=== PATIENT | male | born 1965 | race African-American/Black ===

== ENCOUNTER 2017-10-06 07:56 | Inpatient (IN) ==
[2017-10-06] MEDS ORDERED: ONDANSETRON 4 MG/2 ML VIAL IV STA (08:13)
[2017-10-06] MEDS ORDERED: PANTOPRAZOLE 40 MG VIAL IV STA (08:13)
[2017-10-06 08:39] LABS: Basophils % 0.3 % (0.0-0.8); Eosinophils # 0.1 10*3/uL (0.0-0.87); Eosinophils % 1.6 % (0.00-10.9); Hematocrit 33.4 VOL% (42.0-52.0); Hemoglobin 10.6 GM/DL (14.0-18.0); Immature Granulocytes % 0.5 %; Immature Granulocytes Absolute 0.03 #; Lymphocytes # 1.1 10*3/uL (1.4-4.0); Lymphocytes % 16.9 % (21.2-54.2); Mean Corpuscular HGB Conc 31.7 GM/DL (32-36); Mean Corpuscular Hemoglobin 28 PG (27-34); Mean Corpuscular Volume 89.1 FL (87-102); Mean Platelet Volume 10.6 FL (9.6-12.0); Monocytes # 0.5 10*3/uL (0.11-0.8); Monocytes % 8.5 % (1.7-12.7); Neutrophils # 4.5 10*3/uL (1.4-7.4); Neutrophils % 72.2 % (38.7-73.9); Platelet Count 322 T/CUMM (130-400); Red Blood Count 3.75 MC/CUMM (3.8-5.5); Red Cell Distribution Width 13.6 % (9.3-17.3); White Blood Count 6.2 T/CUMM (4-12)
[2017-10-06 08:47] LABS: PT Patient Result 10.8 SECS; Partial Thromboplastin Time 25.9 SECS (0-40)
[2017-10-06 09:03] LABS: Albumin 3.8 G/DL (3.4-5.0); Bilirubin,Total 0.6 MG/DL (0.2-1.0); Calcium 9.1 MG/DL (8.5-10.1); Osmolality,Calculated 274.8 MOS/KG (273-304); Potassium 3.9 MMOL/L (3.5-5.1); Total Protein 7.5 G/DL (6.4-8.3)
[2017-10-06] MEDS ORDERED: SODIUM CHLORIDE 0.9% 1,000 ML IV STA (09:32)
[2017-10-06] MEDS ORDERED: traZODone 50 MG TABLET PO PRN (15:06)
[2017-10-06] MEDS ORDERED: ONDANSETRON 4 MG/2 ML VIAL IV PRN (15:06)
[2017-10-06] MEDS ORDERED: MORPHINE 4 MG/1 ML VIAL IV PRN (15:06)
[2017-10-06 15:35] LABS: Hematocrit 30.2 VOL% (42.0-52.0); Hemoglobin 9.5 GM/DL (14.0-18.0)
[2017-10-06] MEDS: SODIUM CHLORIDE 0.9% 1,000 ML IV SCH ×2 (16:40→23:22)
[2017-10-06] MEDS: PANTOPRAZOLE 40 MG VIAL IV SCH (20:47)
[2017-10-06 21:27] LABS: Hematocrit 28.8 VOL% (42.0-52.0); Hemoglobin 9.4 GM/DL (14.0-18.0)
[2017-10-07] MEDS: SODIUM CHLORIDE 0.9% 1,000 ML IV SCH ×3 (00:19→17:06)
[2017-10-07 02:50] LABS: Basophils % 0.2 % (0.0-0.8); Eosinophils # 0.3 10*3/uL (0.0-0.87); Eosinophils % 4.8 % (0.00-10.9); Hematocrit 28.5 VOL% (42.0-52.0); Hemoglobin 9.1 GM/DL (14.0-18.0); Hemoglobin 9.2 GM/DL (14.0-18.0); Immature Granulocytes % 0.4 %; Immature Granulocytes Absolute 0.02 #; Lymphocytes # 1.4 10*3/uL (1.4-4.0); Lymphocytes % 24.7 % (21.2-54.2); Mean Corpuscular HGB Conc 31.7 GM/DL (32-36); Mean Corpuscular Hemoglobin 29 PG (27-34); Mean Corpuscular Volume 90.1 FL (87-102); Mean Platelet Volume 10.4 FL (9.6-12.0); Monocytes # 0.5 10*3/uL (0.11-0.8); Monocytes % 9.4 % (1.7-12.7); Neutrophils # 3.4 10*3/uL (1.4-7.4); Neutrophils % 60.5 % (38.7-73.9); Platelet Count 275 T/CUMM (130-400); Red Blood Count 3.22 MC/CUMM (3.8-5.5); Red Cell Distribution Width 13.8 % (9.3-17.3); White Blood Count 5.6 T/CUMM (4-12)
[2017-10-07] MEDS ORDERED: LIDOCAINE 2% 5 ML VIAL ONE (09:12)
[2017-10-07] MEDS ORDERED: PROPOFOL 200 MG/20 ML VIAL IV ONE (09:12)
[2017-10-07] MEDS: PANTOPRAZOLE 40 MG VIAL IV SCH (10:14)
[2017-10-07 10:54] LABS: Hematocrit 32.1 VOL% (42.0-52.0); Hemoglobin 10.4 GM/DL (14.0-18.0)
[2017-10-07] MEDS: PANTOPRAZOLE 40 MG TABLET PO SCH (18:47)
[2017-10-08] MEDS: SODIUM CHLORIDE 0.9% 1,000 ML IV SCH ×2 (00:45→09:23)
[2017-10-08 06:03] LABS: Basophils % 0.2 % (0.0-0.8); Eosinophils # 0.3 10*3/uL (0.0-0.87); Eosinophils % 4.6 % (0.00-10.9); Hematocrit 28.3 VOL% (42.0-52.0); Hemoglobin 9.1 GM/DL (14.0-18.0); Immature Granulocytes % 0.5 %; Immature Granulocytes Absolute 0.03 #; Mean Corpuscular HGB Conc 32.2 GM/DL (32-36); Mean Corpuscular Hemoglobin 29 PG (27-34); Mean Corpuscular Volume 89.3 FL (87-102); Mean Platelet Volume 10.6 FL (9.6-12.0); Monocytes # 0.5 10*3/uL (0.11-0.8); Monocytes % 8.6 % (1.7-12.7); Neutrophils # 3.7 10*3/uL (1.4-7.4); Neutrophils % 67.1 % (38.7-73.9); Platelet Count 280 T/CUMM (130-400); Red Blood Count 3.17 MC/CUMM (3.8-5.5); Red Cell Distribution Width 13.9 % (9.3-17.3); White Blood Count 5.5 T/CUMM (4-12)
[2017-10-08] MEDS: PANTOPRAZOLE 40 MG TABLET PO SCH (06:20)
[2017-10-08 09:44] VITALS: BP 118/78
== END 2017-10-08 09:44 | disposition home or self-care (01) | DRG 378 ==
LOC: N.ED 07:56 → N.EDINP 09:54 → N.5E 11:44
PROVIDERS: ADMIT Internal Medicine; ATTEND Internal Medicine